=== PATIENT | female | born 2000 | race Two or more races ===

== ENCOUNTER 2022-02-14 21:44 | Emergency (ER) | payer SELFPAY ==
[~2022-02-14] VITALS: Ht 154.9 cm; Wt 38.6 kg
[2022-02-14 21:59] VITALS: BP 131/75
== END 2022-02-15 02:32 | disposition left against medical advice (07) ==
LOC: ER 21:44 → EDBD 21:44 → ER 02-15 02:32
DX: R21 Rash and other nonspecific skin eruption (principal); Z53.21 Procedure and treatment not carried out due to patient leaving prior to being seen by health care provider

== ENCOUNTER 2022-10-31 13:41 | Emergency (ER) | payer MEDICAID ==
[~2022-10-31] VITALS: Ht 152.4 cm; Wt 39.3 kg
[2022-10-31 13:48] VITALS: BP 114/70; TEMP 98.2
[2022-10-31 15:01] LABS: Urine Bacteria NONE SEEN /hpf (None Seen); Urine Blood 2+ /uL (Negative); Urine Clarity CLOUDY (Clear); Urine Color Yellow (Yellow); Urine Mucus FEW (None Seen); Urine Protein, UAD 2+ (Negative); Urine Specific Gravity 1.017 (1.001-1.035); Urine Urobilinogen Normal (Negative); Urine WBC 1042 /hpf (0 - 5); Urine WBC Clumps PRESENT /hpf (None Seen); Urine pH 7.5 (5.0-8.0)
[2022-10-31] MEDS ORDERED: cefTRIAXone SOD 1,000 MG VL IM ONE ×2 (15:45→16:00)
[2022-10-31] MEDS ORDERED: NITR-87 PO (15:47)
[2022-10-31] MEDS ORDERED: cefTRIAXone SOD 1,000 MG VL ONE (15:57)
[2022-10-31 16:04] VITALS: PULSE 98; RESP 18; O2SAT 98
== END 2022-10-31 16:26 | disposition home or self-care (01) ==
LOC: ER 13:41
DX: N30.90 Cystitis, unspecified without hematuria (principal)
CPT/HCPCS: 81001; 96372; 99283; J0696